=== PATIENT | female | born 1955 | race Caucasian/White ===

== ENCOUNTER → 2019-07-08 | Outpatient (CLI) | payer BC ==
--- NOTE | 2019-07-08 15:39 | Diagnostic Imaging Report ---
MRI of the right shoulder without contrast. History: Shoulder pain. Decreased range of motion. Rotator cuff tear. Comparison: None Technique: Coronal PD FS, sagital PD FS, and axial PD and PD FS. Findings: Rotator cuff: Rotator cuff tendinosis with midsubstance degeneration and mild articular sided partial tear involving the anterior fibers of the supraspinatus and infraspinatus tendons at the humeral insertion site. Additionally, there is subscapularis tendinosis. The teres minor tendon is intact. 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 Undersurface spurring with narrowing of the supraspinatus tendon outlet. Moderate subacromial/subdeltoid bursitis. Glenohumeral joint: Degeneration and fraying of the labrum. The articular cartilage surfaces are intact. Humeral head is well-seated in the glenoid fossa. Small effusion and mild synovitis in the rotator interval and subcoracoid space. Biceps tendon: The biceps tendon is intact. Other findings: Negative for muscle denervation or osseous fracture. Impression: Rotator cuff tendinosis with midsubstance degeneration and mild articular sided partial tear involving the anterior fibers of the supraspinatus and infraspinatus tendons at the humeral insertion site. Moderate degenerative arthrosis at the acromioclavicular joint with moderate subacromial/subdeltoid bursitis. Small effusion and mild synovitis in the rotator interval and subcoracoid space. Signed by: Dr. Marco Lee M.D. on 07/08/2019 3:35 PM
== END ==
LOC: MRI 13:29
PROVIDERS: ATTEND Specialist
DX: S46.091A Other injury of muscle(s) and tendon(s) of the rotator cuff of right shoulder, initial encounter (principal)